=== PATIENT | male | born 2000 | race African-American/Black ===

== ENCOUNTER 2021-06-17 11:59 | Emergency (ER) | payer MEDICAID ==
[~2021-06-17] VITALS: Ht 190.5 cm; Wt 78.6 kg
[2021-06-17 14:32] VITALS: BP 111/62
== END 2021-06-17 14:36 | disposition home or self-care (01) ==
LOC: ER 11:59
DX: Z13.9 Encounter for screening, unspecified (principal); R11.2 Nausea with vomiting, unspecified; F14.10 Cocaine abuse, uncomplicated; F15.10 Other stimulant abuse, uncomplicated; Z88.6 Allergy status to analgesic agent
CPT/HCPCS: 99281; Z7610